=== PATIENT | female | born 1995 | race Caucasian/White ===

== ENCOUNTER 2016-06-13 13:27 | Emergency (ER) | payer MEDICAID ==
[2016-06-13] MEDS ORDERED: SODIUM CHLORIDE 0.9% 1,000 ML IV ONE (13:48)
[2016-06-13] MEDS ORDERED: ONDANSETRON 4 MG/2 ML VIAL IVP STA (14:44)
[2016-06-13] MEDS ORDERED: ONDANSETRON 4 MG/2 ML VIAL ONE (14:45)
== END 2016-06-13 15:26 | disposition home or self-care (01) ==
DX: R00.2 Palpitations (principal); R11.0 Nausea; R03.0 Elevated blood-pressure reading, without diagnosis of hypertension; E66.9 Obesity, unspecified; Z68.41 Body mass index [BMI] 40.0-44.9, adult

== ENCOUNTER 2018-01-11 14:15 | Emergency (ER) | payer MEDICAID, OTHER ==
[2018-01-11 14:25] VITALS: BP 149/92
[2018-01-11] MEDS ORDERED: DEXAMETHASONE 10 MG/ML VIAL PO STA (14:42)
[2018-01-11] MEDS ORDERED: BENZOCAINE/MENTHOL LOZENGE MM STA (14:46)
[2018-01-11] MEDS ORDERED: CHERRY SYRUP 10 ML UDC PO ONE (14:52)
--- NOTE | 2018-01-11 14:52 | ED Physician Documentation ---
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 denies: Dyspnea GI: denies: Abdominal Pain : denies: Now EGA Endocrine: denies: Easy bruising / bleeding Immunocompromised: denies: Immunocompromised PD PAST MEDICAL HISTORY - Past Surgical History Past Surgical History: No - Allergies Allergies/Adverse Reactions: Allergies Allergy/AdvReac Type Severity Reaction Status Date / Time No Known Drug Allergies Allergy Verified 01/11/18 14:24 - Social History Does the pt smoke?: No Smoking Status: Never smoker Does the pt drink ETOH?: No Does the pt have substance abuse?: No - Immunizations Immunizations are current?: Yes PD ED PE NORMAL - Vitals Vital signs reviewed: Yes - HEENT HEENT: Moist mucous membranes. No: Pharynx benign (erythema and some adenoid swelling) - Cardiac Cardiac: RRR - Respiratory Respiratory: No respiratory distress, Clear bilaterally - Abdomen Abdomen: Soft Results - Vitals Vitals: Vital Signs - 24 hr 01/11/18 14:22 Temperature 36.7 C Heart Rate 97 Respiratory 15 Rate Blood Pressure 149/92 H O2 Saturation 100 Oxygen O2 Source Room air - Labs Labs: Laboratory Tests 01/11/18 14:28 Group A Strep Rapid Negative PD MEDICAL DECISION MAKING - Sepsis Event Vital Signs: Vital Signs - 24 hr 01/11/18 14:22 Temperature 36.7 C Heart Rate 97 Respiratory 15 Rate Blood Pressure 149/92 H O2 Saturation 100 Oxygen O2 Source Room air Departure - Departure Disposition: 01 Home, Self Care Clinical Impression: Pharyngitis Qualifiers: Pharyngitis/tonsillitis etiology: unspecified etiology Qualified Code(s): J02.9 - Acute pharyngitis, unspecified Condition: Good Instructions: ED Pharyngitis Viral Report Pending Follow-Up: Thomas Zamorano MD [Primary Care Provider] - Comments: The rapid strep test is negative An official throat culture will also be run and the ER staff will call you if it is positive and antibiotics are needed The dose of steroids given in the ER will ease the pain and swelling for several days Can also use cepacol lozenges as needed Off work 2 days (could be infectious) And please follow up with your PMD about your blood pressure - it was high today Forms: Activity restrictions
== END 2018-01-11 15:37 | disposition home or self-care (01) ==
LOC: ED 14:15
DX: J02.9 Acute pharyngitis, unspecified (principal)
CPT/HCPCS: 87070; 87430; 99282; 99283; A9270

== ENCOUNTER 2018-06-21 08:00 | Outpatient (CLI) | payer BC, OTHER ==
[2018-06-21 20:08] LABS: THYROID STIMULATING HORMONE 2.98 uIU/mL (0.34-5.60)
[2018-06-21 20:19] LABS: FOLATE 12.07 ng/mL (5.90 - >24.8)
[2018-06-21 20:22] LABS: ALBUMIN 3.8 g/dL (3.2-5.5); ALKALINE PHOSPHATASE 62 IU/L (42-121); ALT ALANINE AMINOTRANSFERASE 69 IU/L (10-60); AST ASPARTATE AMINOTRANSFERASE 46 IU/L (10-42); BILIRUBIN,TOTAL 0.8 mg/dL (0.2-1.0); BUN - BLOOD UREA NITROGEN 10 mg/dL (6-20); CALCIUM 9.1 mg/dL (8.5-10.3); CARBON DIOXIDE - CO2 24 mmol/L (21-32); CHLORIDE 104 mmol/L (101-111); CHOL/HDL RATIO 4.8 (<4.4); CHOLESTEROL 182 mg/dL; CREATININE 0.6 mg/dL (0.4-1.0); GFR - MDRD 125 (>89); GLUCOSE 78 mg/dL (70-100); HDL CHOLESTEROL 38 mg/dL; LDL CHOLESTEROL,CALCULATED 106 mg/dL; LDL/HDL RATIO 2.8 (<4.4); SODIUM 137 mmol/L (135-145); TOTAL PROTEIN 7.8 g/dL (6.7-8.2); VLDL CHOLESTEROL 38 mg/dL
[2018-06-21 20:36] LABS: FOLLICLE STIMULATING HORMONE 5.01 mIU/mL; LUTEINIZING HORMONE 8.87 mIU/mL
[2018-06-21 20:51] LABS: HCG,QUALITATIVE BLOOD NEGATIVE
[2018-06-22 07:17] LABS: ESTRADIOL 33 pg/mL; PROGESTERONE <0.5 ng/mL
== END 2018-06-21 23:59 | disposition home or self-care (01) ==
LOC: LAB.N 08:00
PROVIDERS: ATTEND Nurse Practitioner
DX: I10 Essential (primary) hypertension (principal); E55.9 Vitamin D deficiency, unspecified; R53.83 Other fatigue; N91.2 Amenorrhea, unspecified
CPT/HCPCS: 36415; 80053; 80061; 82306; 82607; 82670; 82746; 83001; 83002; 83721; 84144; 84403; 84443; 84703

== ENCOUNTER 2018-06-22 08:00 | Outpatient (CLI) | payer BC, OTHER ==
[2018-06-22 18:44] LABS: BASOPHILS % (AUTO) 0.5 %; EOSINOPHILS # (AUTO) 0.2 10^3/uL (0.0-0.7); EOSINOPHILS % (AUTO) 2.6 %; HGB - HEMOGLOBIN 12.9 g/dL (12.0-16.0); LYMPHOCYTES # (AUTO) 2.3 10^3/uL (1.5-3.5); LYMPHOCYTES % (AUTO) 28.3 %; MEAN CORPUSCULAR HEMOGLOBIN 28.4 pg (27.0-31.0); MEAN CORPUSCULAR HGB CONC 33.7 g/dL (32.0-36.0); MEAN CORPUSCULAR VOLUME 84.3 fL (81.0-99.0); MEAN PLATELET VOLUME 7.5 fL (7.9-10.8); MONOCYTES # (AUTO) 0.7 10^3/uL (0.0-1.0); MONOCYTES % (AUTO) 8.6 %; NEUTROPHILS # (AUTO) 4.9 10^3/uL (1.5-6.6); PLT - PLATELET COUNT 217 10^3/uL (130-450); RED BLOOD COUNT 4.53 10^6/uL (4.20-5.40); RED CELL DISTRIBUTION WIDTH 14.9 % (12.0-15.0); WHITE BLOOD COUNT 8.1 x10^3/uL (4.8-10.8)
== END 2018-06-22 23:59 | disposition home or self-care (01) ==
LOC: LAB.N 08:00
PROVIDERS: ATTEND Nurse Practitioner
DX: R53.83 Other fatigue (principal); N91.2 Amenorrhea, unspecified
CPT/HCPCS: 36415; 85025

== ENCOUNTER 2018-08-02 15:53 | Outpatient (CLI) | payer BC ==
--- NOTE | 2018-08-02 20:41 | Ultrasound Report ---
Reason: PELVIC PAIN,AMENORRHEA Procedure Date: 08/02/2018 Accession Number: [id number] / [id number] Procedure: US - Pelvic w/Transvaginal CPT Code: FULL RESULT: EXAM: PELVIC ULTRASOUND EXAM DATE: 08/02/2018 04:45 PM. CLINICAL HISTORY: PELVIC PAIN,AMENORRHEA. COMPARISON: 08/02/2018 4:54 PM. TECHNIQUE: Realtime transabdominal pelvic scan performed to identify the uterus and adnexa and as an overview of other pelvic structures, followed by transvaginal scan to provide greater detail of the uterus and adnexa, with static image documentation. FINDINGS: Uterus: 8.4 x 3.7 x 4.6 cm, volume 74.8 cc. Anteverted position. Normal overall size and echotexture. Masses: None. Endometrium: 6 mm. No focal endometrial abnormalities. Cervix: Unremarkable. Right Ovary: 2.1 x 2.2 x 5.0 cm, volume 12.1 cc. Normal echotexture and blood flow. Left Ovary: 4.4 x 2.1 x 2.3 cm, volume 11.1 cc. Normal echotexture and blood flow. Free Fluid: None. Other: None. IMPRESSION: No acute sonographic abnormalities. RADIA
== END 2018-08-02 15:54 | disposition home or self-care (01) ==
LOC: DI 15:53
PROVIDERS: ATTEND Nurse Practitioner
DX: R10.2 Pelvic and perineal pain (principal); N91.2 Amenorrhea, unspecified
CPT/HCPCS: 76830; 76856

== ENCOUNTER 2024-01-09 10:26 | Emergency (ER) | payer BC, OTHER ==
[2024-01-09 11:04] VITALS: BP 157/112; O2SAT 99
[2024-01-09 11:09] LABS: RAPID STREP SCREEN POSITIVE (Negative)
--- NOTE | 2024-01-09 11:28 | ED Physician Documentation ---
PD HPI HEENT - Stated complaint Stated Complaint: SORE THROAT,SWOLLEN - Chief complaint Chief Complaint: Heent - Additional information Additional information: 28-year-old female with no pertinent past medical history presents emergency department for worsening sore throat.Patient says that last night it got significantly worse to the point where she is having a hard time sleeping and she is having hard time swallowing. She has been having fevers and chills on trial of higher fevers have been at home. PD PAST MEDICAL HISTORY - Past Surgical History Past Surgical History: No - Present Medications Home Medications: Ambulatory Orders Medication Instructions Recorded Confirmed Penicillin Vk 500 mg PO BID 10 Days #40 cap 01/09/24 predniSONE [Deltasone] 40 mg PO DAILY 5 Days #10 tablet 01/09/24 - Allergies Allergies/Adverse Reactions: Allergies Allergy/AdvReac Type Severity Reaction Status Date / Time No Known Drug Allergies Allergy Verified 01/09/24 10:50 - Social History Does the pt smoke?: No Smoking Status: Former smoker Does the pt drink ETOH?: No Does the pt have substance abuse?: No - Immunizations Immunizations are current?: Yes - POLST Patient has POLST: No PD ED PE NORMAL - Vitals Vital signs reviewed: Yes - General General: Alert and oriented X 3, No acute distress, Well developed/nourished - HEENT HEENT: Atraumatic, PERRL, Other (enlarged tonsils with exudate, right larger than left, Right tonsil 4+, left tonsil 3+. ) - Neck Neck: Other (cervical adenopathy) - Cardiac Cardiac: RRR - Respiratory Respiratory: No respiratory distress Results - Vitals Vitals: Vital Signs - 24 hr 01/09/24 01/09/24 10:50 11:47 Temperature 38.6 C H 38.6 C H Heart Rate 109 H Respiratory 15 Rate Blood Pressure 157/112 H O2 Saturation 99 Oxygen O2 Source Room air - Labs Labs: Laboratory Tests 01/09/24 10:55 Group A Strep Rapid POSITIVE H PD Medical Decision Making - ED course ED course: 28-year-old female presents emergency department for sore throat fevers and chills. Rapid group A strep came back positive. Patient on physical exam has quite enlarged tonsils right larger than left with possible early signs of a peritonsillar abscess. She was given 10 mg oral dexamethasone here in the emergency department help with her sore throat started on penicillin as well as Tylenol and ibuprofen. Prescription of prednisone 5-day course was sent to her preferred pharmacy if this is early signs of peritonsillar abscess and prescription of penicillin also sent to her preferred pharmacy. Patient was told if she feels any worse with taking these medications for the next 48 hours or has any difficulty breathing or any worsening symptoms to have a very low threshold to present back to the emergency department. Return precautions understood patient is safe for discharge at this time. Departure - Departure Disposition: 01 Home, Self Care Clinical Impression: Streptococcal infection group A, Peritonsillar abscess Instructions: Strep Throat, ED Peritonsillar Infec Abx No I andD Prescriptions: predniSONE [Deltasone] 40 mg PO DAILY 5 Days #10 tablet Penicillin Vk 500 mg PO BID 10 Days #40 cap Comments: Thank you for trusting us with your care. You have tested positive for group A strep throat. We started you on antibiotic called penicillin and you will take this 2 times a day for the next 10 days. He also appeared to have some very early mild signs of a possible peritonsillar abscess on the right side of your throat. Because of this and going to put you on a 5-day course of prednisone which is a steroid to help with the inflammation. If after 2 days of antibiotics and steroids you are not noticing any improvement of pain or symptoms please come back to the emergency department for further evaluation. You have taken the first dose of penicillin here today but you will take the second dose late this evening you do not need to take the steroids today that will start tomorrow. Forms: PCP List Discharge Date/Time: 01/09/24 11:58
[2024-01-09] MEDS: DEXAMETHASONE 10 MG/ML VIAL PO STA (11:47)
[2024-01-09] MEDS: IBUPROFEN 200 MG/10 ML UDC PO STA (11:47)
[2024-01-09] MEDS: ACETAMINOPHEN 500 MG TABLET PO STA (11:48)
[2024-01-09] MEDS: CHERRY SYRUP 10 ML UDC PO ONE (11:48)
[2024-01-09] MEDS: PENICILLIN VK 250 MG TABLET PO STA (11:48)
== END 2024-01-09 11:58 | disposition home or self-care (01) ==
LOC: ED 10:26
DX: J36 Peritonsillar abscess (principal); B95.0 Streptococcus, group A, as the cause of diseases classified elsewhere
CPT/HCPCS: 87430; 99283; 99284; A9270